=== PATIENT | female | born 1980 | race Caucasian/White ===

== ENCOUNTER 2020-09-08 18:31 | Outpatient (REF) | payer OTHER, SELFPAY | END 2020-09-08 18:32 | disposition home or self-care (01) | LOC: HO.LNP 18:31 | PROVIDERS: Visit Provider Otolaryngology | DX: H66.92 Otitis media, unspecified, left ear (principal) | CPT/HCPCS: 87071; 87102; 87106; 87107; 87147; 87205 ==

== ENCOUNTER 2020-09-23 09:22 | Outpatient (REF) | payer OTHER, SELFPAY ==
--- NOTE | ~2020-09-23 | CT_ITS ---
EXAMINATION: CT SINUS WITHOUT CONTRAST CLINICAL INFORMATION: Sinonasal polyps. COMPARISON: None. TECHNIQUE: 2 mm thin axial and reformatted 2 mm thin sagittal and coronal images of sinuses were obtained without contrast. This CT examination was performed using dose optimization techniques as appropriate, variously including the following: *Automated exposure control *Adjustment of mA and/or kV according to patient size (this includes techniques or standardized protocols for targeted exams where dose is matched to indication/reason for exam; i.e. extremities or head) *Use of iterative reconstruction technique DLP: 92 mGy-cm. FINDINGS: There is normal in aeration of the bilateral frontal, ethmoid, maxillary and sphenoid sinuses. Bilateral ostiomeatal complex and frontoethmoidal recesses, drainage pathways are widely patent. The bony knox of all sinuses are intact. NASAL CAVITY/NASOPHARYNX: There is mild deviation of nasal septum to the right. The turbinates are symmetrical and normal. The nasopharyngeal and nasal cavity airway is widely patent. The cribriform plate are symmetric and normal. The turbinates are symmetrical and normal. There is soft tissue density seen within left middle ear involving the mesotympanum and hypotympanum, likely secondary to inflammatory changes or cholesteatoma. No air-fluid levels seen. The epitympanum and the middle ear ossicles are normal. The right middle ear is clear. The middle ear ossicles are intact. Bilateral external auditory canal is normal. There is partial opacification of left mastoid sinus from inflammatory changes. The right mastoid sinus is well aerated and clear. Bilateral TM joints are symmetrical and normal. Visualized mandibular bone, nasal bone and bilateral bony orbits are intact. The optic globes and optic nerves are symmetrical and normal. CT/CT sinus wo con IMPRESSION: Unremarkable CT of the sinuses. Near-complete opacification of left mastoid sinus from inflammatory changes. There is left middle ear otitis media or cholesteatoma. But no air-fluid levels seen to suspect acute otitis media.
== END 2020-09-23 09:23 | disposition home or self-care (01) ==
LOC: HO.CT 09:22
PROVIDERS: Visit Provider Otolaryngology
DX: J33.0 Polyp of nasal cavity (principal)
CPT/HCPCS: 70486